=== PATIENT | male | born 1955 | race Caucasian/White ===

== ENCOUNTER 2020-02-06 08:40 | Day surgery (SDC) | payer BC, MEDICARE ==
[~2020-02-06] VITALS: Ht 182.9 cm; Wt 125.3 kg
[2020-02-06] MEDS ORDERED: MIDAZOLAM 1 MG/ML, 2ML ONE (09:05)
[2020-02-06] MEDS ORDERED: FENTANYL PF 250 MCG/5ML ONE (09:05)
[2020-02-06] MEDS ORDERED: CHLORHEXIDINE 15 ML UDC MM STA (09:28)
[2020-02-06] MEDS ORDERED: LACTATED RINGERS 1,000 ML IV STA (09:28)
[2020-02-06 09:30] VITALS: BP 129/74
[2020-02-06] MEDS ORDERED: CHLORHEXIDINE 15 ML UDC ONE (09:42)
[2020-02-06] MEDS ORDERED: OXYC5CAP2 PO (10:05)
[2020-02-06] MEDS ORDERED: GABA300C PO (10:05)
[2020-02-06] MEDS ORDERED: LACTATED RINGERS 1,000 ML IV SCH (10:30)
[2020-02-06] MEDS ORDERED: VANCOMYCIN 1,000 MG ONE (10:54)
[2020-02-06] MEDS ORDERED: EPHEDRINE 50 MG/ML, 1ML ONE (10:59)
[2020-02-06] MEDS ORDERED: BUPIVACAINE/PF 0.5% ONE (10:59)
[2020-02-06] MEDS ORDERED: DEXAMETHASONE 4 MG/ML, 1ML ONE (10:59)
[2020-02-06] MEDS ORDERED: ONDANSETRON 2MG/ML, 2ML ONE (10:59)
[2020-02-06] MEDS ORDERED: PROPOFOL 10 MG/ML, 20ML ONE (10:59)
[2020-02-06] MEDS ORDERED: ROCURONIUM 10MG/ML,5ML ONE (10:59)
[2020-02-06] MEDS ORDERED: LIDOCAINE-MPF 2% ,5ML ONE (10:59)
[2020-02-06] MEDS ORDERED: NEOSTIGMINE 1 MG/ML, 10ML ONE (10:59)
[2020-02-06] MEDS ORDERED: GLYCOPYRROLATE 0.2MG/1ML, 5ML ONE (10:59)
[2020-02-06] MEDS ORDERED: CEFAZOLIN 1,000 MG ONE (10:59)
[2020-02-06] MEDS ORDERED: SUCCINYLCHOLINE 20 MG/ML, 10ML ONE (10:59)
[2020-02-06] MEDS ORDERED: ONDANSETRON 2MG/ML, 2ML IVPush PRN (12:00)
[2020-02-06] MEDS ORDERED: hydrALAzine 20 MG/ML, 1ML IV PRN (12:00)
[2020-02-06] MEDS ORDERED: OXYcodone 5 MG/5 ML ORAL.SOL UDC PO PRN (12:00)
[2020-02-06] MEDS ORDERED: ACETAMINOPHEN 325 MG TABLET PO PRN (12:00)
[2020-02-06] MEDS ORDERED: FENTANYL PF 100 MCG/2ML IV PRN (12:00)
[2020-02-06] MEDS ORDERED: LABETALOL 5MG/ML, 20ML IV PRN (12:00)
[2020-02-06] MEDS ORDERED: PROMETHAZINE 25 MG/ML, 1ML IVPush PRN (12:00)
[2020-02-06] MEDS ORDERED: HYDROmorphone 1 MG/ML, 1ML INJ IVPush PRN (12:00)
== END 2020-02-06 13:50 | disposition home or self-care (01) ==
LOC: OUT 08:40
PROVIDERS: ATTEND Orthopaedic Surgery
DX: S91.301A Unspecified open wound, right foot, initial encounter (principal); L97.519 Non-pressure chronic ulcer of other part of right foot with unspecified severity; L03.115 Cellulitis of right lower limb; Z79.891 Long term (current) use of opiate analgesic; Z79.899 Other long term (current) drug therapy; Z91.013 Allergy to seafood; Z82.49 Family history of ischemic heart disease and other diseases of the circulatory system; X58.XXXA Exposure to other specified factors, initial encounter; Y93.89 Activity, other specified; Y92.89 Other specified places as the place of occurrence of the external cause; Y99.8 Other external cause status
CPT/HCPCS: 28805; 64447; 88305; 88307; 88311; 93005; J0330; J0690; J1100; J2250; J2405; J2704; J2710; J3010; J3370; J7120